=== PATIENT | female | born 1985 | race Caucasian/White ===

== ENCOUNTER 2016-08-05 11:43 | Emergency (ER) | payer MEDICAID ==
[~2016-08-05] VITALS: Ht 170.2 cm; Wt 58.0 kg
[~2016-08-05 11:43] MED LIST: CITA20 PO; FLAG500T PO; MACR100C PO; MIREIUD IU
[2016-08-05 11:45] VITALS: BP 126/76; PULSE 100; RESP 20; TEMP 98.7; O2SAT 99
--- NOTE | 2016-08-05 12:26 | PD ---
HPI Chief Complaint: Skin Problem Time Seen by Provider: 12:26 Travel History International Travel<30 days: No Contact w/Intl Traveler<30days: No Traveled to known affect area: No History of Present Illness HPI 30-year-old female came to the emergency room with history of a large abscess on her right elbow area. Patient says that she got scratched by her boyfriend' s cat 2 days ago and yesterday she noticed it to be swelling up. She got some chills and low-grade temperature. She took Tylenol for that and it made her feel better. Currently she was afebrile and vital signs stable in triage. No known history of MRSA in the past. I confirmed that it was a scratch and not a bite PFS Past Medical History Narrative Medical List of her past medical, surgical, social and family history was reviewed from the nursing note. Anemia: Yes (MILD) ?: Not LMP: 2 weeks Past Surgical History Section: Yes (2012) Other Surgery: Yes (LEFT KNEE REPAIR, CHIP FRACTURE LEFT ANKLE) Social History Alcohol Use: No Tobacco Use: Yes (1/2 pack a day ) Substance Use: No (HX) Allergies-Medications (Allergen,Severity, Reaction): Coded Allergies: No Known Allergies (Unverified , 08/05/16) Comments List of her allergies reviewed from the nursing note. Reported Meds & Prescriptions Reported Meds & Active Scripts Active Bactrim DS (Sulfamethoxazole-Trimethoprim) 800-160 Mg Tab 1 Tab PO BID Narrative Medication List of her home medications reviewed from the nursing note. Review of Systems Except as stated in HPI: all other systems reviewed are Neg Physical Exam Narrative GENERAL: Awake, alert, moderate distress SKIN: Focused skin assessment warm/dry. 5 cm x 4 cm tender, fluctuant swelling on the lateral aspect of the right elbow. A central puncture wound is noted. Extremely tender to touch. Erythema on the anterior aspect noticed. HEAD: Atraumatic. Normocephalic. EYES: Pupils equal and round. No scleral icterus. No injection or drainage. ENT: No nasal bleeding or discharge. Mucous membranes pink and moist. NECK: Trachea midline. No JVD. CARDIOVASCULAR: Regular rate and rhythm. No murmur appreciated. RESPIRATORY: No accessory muscle use. Clear to auscultation. Breath sounds equal bilaterally. GASTROINTESTINAL: Abdomen soft, non-tender, nondistended. Hepatic and splenic margins not palpable. MUSCULOSKELETAL: No obvious deformities. No clubbing. No cyanosis. No edema. NEUROLOGICAL: Awake and alert. No obvious cranial nerve deficits. Motor grossly within normal limits. Normal speech. PSYCHIATRIC: Appropriate mood and affect; insight and judgment normal. Data Data Last Documented VS Vital Signs Date Time Temp Pulse Resp B/P Pulse Ox O2 Delivery O2 Flow Rate FiO2 08/05/16 12:22 80 08/05/16 11:45 98.7 20 126/76 99 Room Air Orders Basic Metabolic Panel (Bmp) (08/05/16 12:43) Complete Blood Count With Diff (08/05/16 12:43) Blood Culture (08/05/16 12:43) Wound Culture And Gram Stain (08/05/16 12:43) Clindamycin Inj (Cleocin Inj) (08/05/16 12:45) Bupivacaine Pf 0.5% Inj (Marcaine Pf 0.5 (08/05/16 12:45) Lidocaine 1% Inj (50 Ml) (Xylocaine 1% I (08/05/16 12:45) Clindamycin Inj (Cleocin Inj) (08/05/16 13:15) Sulfamet-Trimeth Ds 800-160 Mg (Bactrim (08/05/16 13:45) Ibuprofen (Motrin) (08/05/16 14:30) Labs Laboratory Tests Test 08/05/16 12:52 White Blood Count 9.7 TH/MM3 Red Blood Count 4.58 MIL/MM3 Hemoglobin 12.8 GM/DL Hematocrit 38.5 % Mean Corpuscular Volume 84.1 FL Mean Corpuscular Hemoglobin 28.0 PG Mean Corpuscular Hemoglobin 33.3 % Concent Red Cell Distribution Width 15.0 % Platelet Count 217 TH/MM3 Mean Platelet Volume 7.8 FL Neutrophils (%) (Auto) 72.3 % Lymphocytes (%) (Auto) 22.4 % Monocytes (%) (Auto) 4.6 % Eosinophils (%) (Auto) 0.4 % Basophils (%) (Auto) 0.3 % Neutrophils # (Auto) 7.1 TH/MM3 Lymphocytes # (Auto) 2.2 TH/MM3 Monocytes # (Auto) 0.4 TH/MM3 Eosinophils # (Auto) 0.0 TH/MM3 Basophils # (Auto) 0.0 TH/MM3 CBC Comment DIFF FINAL Differential Comment Sodium Level 139 MEQ/L Potassium Level 4.1 MEQ/L Chloride Level 105 MEQ/L Carbon Dioxide Level 29.1 MEQ/L Anion Gap 5 MEQ/L Blood Urea Nitrogen 9 MG/DL Creatinine 0.94 MG/DL Estimat Glomerular Filtration 70 ML/MIN Rate Random Glucose 89 MG/DL Calcium Level 9.1 MG/DL MDM Medical Decision Making Medical Screen Exam Complete: Yes Emergency Medical Condition: Yes Medical Record Reviewed: Yes Differential Diagnosis Abscess Narrative Course 1:40 PM patient was given IV clindamycin and by mouth Bactrim. The abscess was I&D successfully. Please refer to my procedure note. The test results of back and within normal limits. Patient will be discharged home on prescription and instructions. Procedures Procedure Narrative Incision and drainage: The area was cleaned with Betadine and gauze 3. 0.5% Marcaine with 1% lidocaine mixed one-to-one, 4 mL was infiltrated for local anesthesia over the right elbow area where the abscess was. Once local anesthesia was achieved a horizontal incision was made along the elbow crease. Immediately purulent material started to escape from the incision. At least 30 mL of purulent material came out and was expressed out. Loculations were broken with forceps. Abscess cavity was packed with half-inch bite form gauze strip. Patient tolerated the overall procedure well. EKG Prior to Arrival: No Diagnosis Primary Impression: Abscess Referrals: Primary Care Physician Additional Instructions: Please return to the ER in 48 hours for the packing to be taken out. Fill the prescription and take the antibiotic as per the prescription direction. Please return earlier if the condition worsens or any other new concerns. Follow-up with your primary care. Med/Other Pt SpecificInfo: Prescription(s) given Scripts Sulfamethoxazole-Trimethoprim (Bactrim DS)800-160 Mg Tab1 Tab PO BID #20 TAB Ref 0 Prov:Slime James MD 08/05/16 Disposition: 01 DISCHARGE HOME Condition: Stable Slime James MD August 05, 2016 12:26
[2016-08-05] MEDS ORDERED: CLINDAMYCIN PHOS 900 MG/6 ML VIAL IM ONE (12:45)
[2016-08-05] MEDS ORDERED: LIDOCAINE HCL 1% 50 ML VIAL INFIL ONE (12:45)
[2016-08-05] MEDS ORDERED: BUPIVACAINE HCL PF 0.5% 10 ML VIAL INFIL ONE (12:45)
[2016-08-05 13:06] LABS: AUTOMATED NEUTROPHIL # 7.1 TH/MM3 (1.8-7.7); BASOPHIL % 0.3 % (0.0-2.0); EOSINOPHIL % 0.4 % (0.0-4.0); HEMATOCRIT 38.5 % (35.0-46.0); HEMO FLAGS DIFF FINAL; LYMPH % 22.4 % (9.0-44.0); LYMPHOCYTE # 2.2 TH/MM3 (1.0-4.8); MEAN CELL VOLUME 84.1 FL (80.0-100.0); MEAN CORPUSCULAR HGB CONC 33.3 % (32.0-36.0); MONO % 4.6 % (0.0-8.0); NEUT % 72.3 % (16.0-70.0); PLATELET COUNT 217 TH/MM3 (150-450); RED BLOOD COUNT 4.58 MIL/MM3 (4.00-5.30); WHITE BLOOD COUNT 9.7 TH/MM3 (4.0-11.0)
[2016-08-05] MEDS ORDERED: CLINDAMYCIN INJ 600 MG in SODIUM CHLORIDE 0.9% INJ 100 ML IV ONE (13:15)
[2016-08-05 13:33] LABS: BICARBONATE 29.1 MEQ/L (21.0-32.0); POTASSIUM 4.1 MEQ/L (3.5-5.1)
[2016-08-05] MEDS ORDERED: BACT800T5 PO (13:42)
[2016-08-05] MEDS ORDERED: SULFAMETHOXAZOLE-TRIMETHOPRIM DS 800-160 MG TAB PO ONE (13:45)
[2016-08-05] MEDS ORDERED: IBUPROFEN 600 MG TAB PO ONE (14:30)
== END 2016-08-05 14:34 | disposition home or self-care (01) ==
LOC: NEPD 11:43
DX: L02.413 Cutaneous abscess of right upper limb (principal)
CPT/HCPCS: 10060; 80048; 85025; 86403; 87040; 87070; 96365

== ENCOUNTER 2016-08-07 20:36 | Emergency (ER) | payer MEDICAID ==
[~2016-08-07] VITALS: Ht 170.2 cm; Wt 57.6 kg
[~2016-08-07 20:36] MED LIST changes: +BACT800T5 PO; -CITA20 PO; -FLAG500T PO; -MACR100C PO; -MIREIUD IU
[2016-08-07 20:41] VITALS: BP 104/72; PULSE 86; RESP 16; TEMP 97.9; O2SAT 98
--- NOTE | 2016-08-07 20:45 | PD ---
HPI Chief Complaint: abscess recheck on right arm. Time Seen by Provider: 20:45 Travel History International Travel<30 days: No Contact w/Intl Traveler<30days: No Traveled to known affect area: No History of Present Illness HPI 30-year-old female presents the emergency department status post I&D of abscess on the right lateral elbow 2 days prior to this visit. Patient was seen by Dr. Beckman who did an I&D with packing placed. Patient is currently on Bactrim and states he feels better although she continues to have some bloody drainage from the wound. Packing is still in place. She has mild to moderate discomfort in the elbow, but no other complaints. She has no known drug allergies. [facility] Past Medical History Anemia: Yes (MILD) Past Surgical History Section: Yes (2012) Other Surgery: Yes (LEFT KNEE REPAIR, CHIP FRACTURE LEFT ANKLE) Social History Alcohol Use: No Tobacco Use: Yes (1/2 pack a day ) Substance Use: No (HX) Allergies-Medications (Allergen,Severity, Reaction): Coded Allergies: No Known Allergies (Unverified , 08/07/16) Reported Meds & Prescriptions Reported Meds & Active Scripts Active Bactrim DS (Sulfamethoxazole-Trimethoprim) 800-160 Mg Tab 1 Tab PO BID Review of Systems Except as stated in HPI: all other systems reviewed are Neg General / Constitutional: No: Fever Eyes: No: Visual changes HENT: No: Headaches Cardiovascular: No: Chest Pain or Discomfort Respiratory: No: Shortness of Breath Gastrointestinal: No: Abdominal Pain Genitourinary: No: Dysuria Musculoskeletal: No: Pain Skin: No Rash Neurologic: No: Weakness Psychiatric: No: Depression Endocrine: No: Polydipsia Hematologic/Lymphatic: No: Easy Bruising Physical Exam Narrative GENERAL: No acute distress. SKIN: Warm and dry. Normal color. Normal turgor. Incision site appears without significant erythema or signs of continued abscess or cellulitis. Packing is in place. HEAD: Atraumatic. Normocephalic. EYES: Pupils equal and round. No scleral icterus. No injection or drainage. ENT: No nasal bleeding or discharge. Mucous membranes pink and moist. Pharynx is clear. Airway is patent. NECK: Trachea midline. Supple nontender. CARDIOVASCULAR: Regular rate and rhythm. RESPIRATORY: No accessory muscle use. MUSCULOSKELETAL: Extremities without clubbing, cyanosis, or edema. No obvious deformities. NEUROLOGICAL: Awake and alert. No obvious cranial nerve deficits. Motor grossly within normal limits. Five out of 5 muscle strength in the arms and legs. Normal speech. PSYCHIATRIC: Appropriate mood and affect; insight and judgment normal. Data Data Last Documented VS Vital Signs Date Time Temp Pulse Resp B/P Pulse Ox O2 Delivery O2 Flow Rate FiO2 08/07/16 20:41 97.9 86 16 104/72 98 MDM Medical Decision Making Medical Screen Exam Complete: Yes Emergency Medical Condition: Yes Medical Record Reviewed: Yes Differential Diagnosis I&D of abscess. Wound check. Packing removal. Narrative Course Patient is medically stable at time of exam. Packing is removed without difficulty. Patient is noted to have mild to moderate venous bleeding from the wound site. Nonstick dressing and bulky pressure dressing placed over the wound site. Patient is requested to leave the dressing in place for at least 24 hours. Patient will return if bleeding persists. Patient will otherwise follow-up as needed. Diagnosis Primary Impression: Wound check, abscess Referrals: Primary Care Physician Patient Instructions: Abscess Incision and Drainage (ED), General Instructions Additional Instructions: Packing is removed without difficulty. Patient is noted to have mild to moderate venous bleeding from the wound site. Nonstick dressing and bulky pressure dressing placed over the wound site. Patient is requested to leave the dressing in place for at least 24 hours. Patient will return if bleeding persists. Patient will otherwise follow-up as needed. Med/Other Pt SpecificInfo: Wound Care Disposition: DISCHARGE HOME Condition: Stable Dillon Alonso August 07, 2016 20:45
== END 2016-08-07 21:05 | disposition home or self-care (01) ==
LOC: PHEFT 20:36
DX: L02.413 Cutaneous abscess of right upper limb (principal); F17.200 Nicotine dependence, unspecified, uncomplicated; Z98.890 Other specified postprocedural states; Z86.2 Personal history of diseases of the blood and blood-forming organs and certain disorders involving the immune mechanism
CPT/HCPCS: 99281